=== PATIENT | female | born 1990 | race Caucasian/White ===

== ENCOUNTER → 2025-03-01 09:24 | Outpatient (REF) | payer OTHER, SELFPAY | LOC: PNTC 09:24 | PROVIDERS: ATTENDING PHYSICIAN Obstetrics & Gynecology | DX: Z34.82 Encounter for supervision of other normal pregnancy, second trimester (principal) | CPT/HCPCS: 36415; 86850; 86900; 86901; 96372; J2790 ==

== ENCOUNTER 2025-05-20 10:14 | Inpatient (IN) | payer OTHER, SELFPAY ==
[2025-05-20 10:34] VITALS: BP 124/81; BMI 36.9
[2025-05-20] MEDS: LR 1000 IV ×3 (11:02→17:49)
[2025-05-20] MEDS: PENICILLIN 110 UNITS IV (11:02)
[2025-05-20 11:24] LABS: Hematocrit 32.4 % (37.0-47.0); Hemoglobin 10.8 g/dL (12.0-16.0); Mean Corp Hgb Conc. 33.3 g/dL (33.0-37.0); Mean Corpuscular Volume 85.5 fL (81.0-99.0); Nucleated Red Blood Cells % 0 %; Platelet Count 235 10^3/uL (130-400); Red Cell Dist. Width 15.6 % (11.5-14.5)
[2025-05-20] MEDS: PENICILLIN 55 UNITS IV ×2 (15:15→18:46)
[2025-05-20 19:36] LABS: Cord ABG Comment CORD BLOOD
[2025-05-20 19:38] LABS: B.E. Cord ABG -6.2 mMOL/L; HCO3 Cord ABG 18.2 mmol/L; O2 Saturation % Cord ABG 83.4 %; PCO2 Cord ABG 33 mmHg; PO2 Cord ABG 41 mmHg; pH Cord ABG 7.35
[2025-05-20 19:41] LABS: B.E. Cord ABG -6.7 mMOL/L; HCO3 Cord ABG 18.5 mmol/L; O2 Saturation % Cord ABG 80.2 %; PCO2 Cord ABG 36 mmHg; PO2 Cord ABG 40 mmHg; pH Cord ABG 7.32
[2025-05-20] MEDS: MOTRIN 600 MG PO (20:13)
[2025-05-21 04:16] LABS: Hematocrit 29.5 % (37.0-47.0); Hemoglobin 10.0 g/dL (12.0-16.0)
[2025-05-21] MEDS: COLACE 100 MG PO ×2 (07:43→20:11)
[2025-05-21] MEDS: PRENATAL PLUS 1 TABLET PO (07:43)
[2025-05-21] MEDS: MOTRIN 600 MG PO ×3 (07:45→20:08)
[2025-05-21] MEDS: FEOSOL 325 MG PO (09:00)
[2025-05-21] MEDS: RHOGAM 300 MCG IM (09:18)
[2025-05-21] MEDS: TYLENOL 650 MG PO ×2 (13:59→20:11)
[2025-05-22] MEDS: TYLENOL 650 MG PO (03:01)
[2025-05-22] MEDS: MOTRIN 600 MG PO ×2 (03:01→08:39)
[2025-05-22] MEDS: FEOSOL 325 MG PO (08:37)
[2025-05-22] MEDS: COLACE 100 MG PO (08:37)
[2025-05-22] MEDS: PRENATAL PLUS 1 TABLET PO (08:38)
[2025-05-24 14:19] LABS: Syphilis/T. pallidum Ab Reflex Negative (Negative)
== END 2025-05-22 11:11 | disposition home or self-care (01) | DRG 807 ==
LOC: LDRP 10:14
PROVIDERS: Obstetrics & Gynecology; ADMITTING PHYSICIAN Student in an Organized Health Care Education/Training Program
PROC: 6A550ZT Pheresis of Cord Blood Stem Cells, Single (ICD-10-PCS; 2025-05-20)
PROC: 0KQM0ZZ Repair Perineum Muscle, Open Approach (ICD-10-PCS; 2025-05-20)
PROC: 10E0XZZ Delivery of Products of Conception, External Approach (ICD-10-PCS; 2025-05-20)
PROC: 3E0234Z Introduction of Serum, Toxoid and Vaccine into Muscle, Percutaneous Approach (ICD-10-PCS; 2025-05-21)
DX: O42.02 Full-term premature rupture of membranes, onset of labor within 24 hours of rupture (principal); Z37.0 Single live birth; Z3A.40 40 weeks gestation of pregnancy; O70.1 Second degree perineal laceration during delivery; O48.0 Post-term pregnancy; O69.81X0 Labor and delivery complicated by cord around neck, without compression, not applicable or unspecified; O69.82X0 Labor and delivery complicated by other cord entanglement, without compression, not applicable or unspecified; O99.824 Streptococcus B carrier state complicating childbirth; O76 Abnormality in fetal heart rate and rhythm complicating labor and delivery; Z91.410 Personal history of adult physical and sexual abuse; Z23 Encounter for immunization
CPT/HCPCS: 82803; 85014; 85018; 85025; 85461; 86780; 86850; 86900; 86901; 88307; J2790